=== PATIENT | female | born 1950 | race African-American/Black ===

== ENCOUNTER 2018-10-10 15:04 | Outpatient (CLI) | payer MEDICARE, BC ==
--- NOTE | 2018-10-10 15:43 | MMO ---
Bilateral MAMMO Bilat Screen [facility]. CLINICAL HISTORY: Patient is 67 years old and is seen for screening. The patient has no family history of breast cancer. The patient has no personal history of cancer. VIEWS: The views performed were: bilateral craniocaudal with tomosynthesis and bilateral mediolateral oblique with tomosynthesis. FILMS COMPARED: The present examination has been compared to prior imaging studies performed at [facility] on 05/22/2009, 10/31/2013, 01/07/2016 and 01/10/2017. MAMMOGRAM FINDINGS: There are scattered fibroglandular densities. There are vascular calcifications seen in both breasts. There are no suspicious masses, suspicious calcifications, or new areas of architectural distortion. IMPRESSION: A ROUTINE FOLLOW-UP MAMMOGRAM IN 1 YEAR IS RECOMMENDED. THE RESULTS OF THIS EXAM WERE SENT TO THE PATIENT. ACR BI-RADS Category 2 - Benign finding MAMMOGRAPHY NOTE: 1. A negative mammogram report should not delay a biopsy if a dominant of clinically suspicious mass is present. 2. Approximately 10% to 15% of breast cancers are not detected by mammography. 3. Adenosis and dense breasts may obscure an underlying neoplasm.
== END 2018-10-10 15:05 | disposition home or self-care (01) ==
LOC: BICMAMMO 15:04
PROVIDERS: ATTEND Family Medicine
DX: Z12.31 Encounter for screening mammogram for malignant neoplasm of breast (principal)
CPT/HCPCS: 77063; 77067

== ENCOUNTER 2020-03-03 13:55 | Outpatient (CLI) | payer MEDICARE, BC ==
--- NOTE | 2020-03-03 16:41 | MMO ---
Bilateral MAMMO Bilat Screen [facility]. CLINICAL HISTORY: Patient is 69 years old and is seen for screening. The patient has no family history of breast cancer. The patient has no personal history of cancer. VIEWS: The views performed were: bilateral craniocaudal with tomosynthesis and bilateral mediolateral oblique with tomosynthesis. FILMS COMPARED: The present examination has been compared to prior imaging studies performed at [facility] on 10/31/2013, 01/07/2016, 01/10/2017 and 10/10/2018. This study has been interpreted with the assistance of computer-aided detection. MAMMOGRAM FINDINGS: There are scattered fibroglandular densities. There are no suspicious masses, suspicious calcifications, or new areas of architectural distortion. IMPRESSION: THERE IS NO MAMMOGRAPHIC EVIDENCE OF MALIGNANCY. A ROUTINE FOLLOW-UP MAMMOGRAM IN 1 YEAR IS RECOMMENDED. THE RESULTS OF THIS EXAM WERE SENT TO THE PATIENT. ACR BI-RADS Category 1 - Negative MAMMOGRAPHY NOTE: 1. A negative mammogram report should not delay a biopsy if a dominant of clinically suspicious mass is present. 2. Approximately 10% to 15% of breast cancers are not detected by mammography. 3. Adenosis and dense breasts may obscure an underlying neoplasm. Reported by: MARTIN POWELL MD Electonically Signed: [id number]
== END 2020-03-03 13:56 | disposition home or self-care (01) ==
LOC: BICMAMMO 13:55
PROVIDERS: ATTEND Family Medicine
DX: Z12.31 Encounter for screening mammogram for malignant neoplasm of breast (principal)
CPT/HCPCS: 77063; 77067

== ENCOUNTER 2021-12-16 13:51 | Outpatient (CLI) | payer MEDICARE, BC | END 2021-12-16 13:52 | disposition home or self-care (01) | LOC: BICMAMMO 13:51 | PROVIDERS: ATTEND Family Medicine | DX: Z12.31 Encounter for screening mammogram for malignant neoplasm of breast (principal); Z13.820 Encounter for screening for osteoporosis; E28.39 Other primary ovarian failure; M85.88 Other specified disorders of bone density and structure, other site; Z78.0 Asymptomatic menopausal state | CPT/HCPCS: 77063; 77067; 77080 ==

== ENCOUNTER 2022-01-18 09:38 | Emergency (ER) | payer OTHER, MEDICARE, BC ==
[2022-01-18] MEDS ORDERED: Ketorolac Tromethamine 30 MG/ML VIAL ONE (12:10)
== END 2022-01-18 12:33 | disposition home or self-care (01) ==
LOC: ERS 09:38
DX: M54.12 Radiculopathy, cervical region (principal); I10 Essential (primary) hypertension; E78.00 Pure hypercholesterolemia, unspecified; F17.220 Nicotine dependence, chewing tobacco, uncomplicated; V43.52XA Car driver injured in collision with other type car in traffic accident, initial encounter
CPT/HCPCS: 70450; 72125; 96372; J1885

== ENCOUNTER 2022-12-21 14:09 | Outpatient (CLI) | payer MEDICARE, BC | END 2022-12-21 14:10 | disposition home or self-care (01) | LOC: BICMAMMO 14:09 | PROVIDERS: ATTEND Family Medicine | DX: Z12.31 Encounter for screening mammogram for malignant neoplasm of breast (principal) | CPT/HCPCS: 77063; 77067 ==

== ENCOUNTER 2024-02-12 19:11 | Emergency (ER) | payer MEDICARE ==
[2024-02-12 20:11] LABS: Analyzer IN Cardio ER; Base Excess 1.9 mEq/L (-2.0 to +3.0); Calcium, Ionized (venous) 1.17 mmol/L (1.16-1.32); Chloride (VBG) 94 mmol/L (98-106); Hematocrit-VBG 45 % (36.0-47.0); Hemoglobin (Hb) 15.3 g/dL (11.7-16.1); Potassium (VBG) 4.13 mmol/L (3.70-5.30); Sodium 135 mmol/L (133-146); pH (venous) 7.438 (7.32-7.43)
[2024-02-12 20:12] LABS: #Basophils 0.08 10x3/uL (0.0-0.2); %Basophils 1.1 % (0.0-1.0); %Eosinophils 1.6 % (0.0-10.0); %Lymphocytes 33.9 % (21.0-51.0); %Monocytes 10.6 % (0.0-10.0); %Neutrophils 52.7 % (42.0-75.0); Hematocrit 42.4 % (36.0-47.0); Mean Corpuscular Hemoglobin 28.3 pg (27.0-31.0); Mean Corpuscular Volume 85.7 fL (78.0-98.0); Mean Platelet Volume 11.3 fL (7.4-10.4); Platelet Count 261 10x3/uL (130-400); RBC Distribution Width 12.3 % (11.5-14.5); Red Blood Cell (RBC) Count 4.95 mill/uL (4.20-5.40)
[2024-02-12 20:19] LABS: Bacteria/HPF None Seen HPF (None Seen); Bilirubin Negative (Negative); Blood, Urine Negative (Negative); CAUTI Indications for Culture Pelvic or flank pain; Clarity Clear (Clear); Glucose, Urine (Dipstick) Greater than 1000 mg/dL (Negative); Ketone, Urine Negative (Negative); Leukocyte Negative Leu/uL (Negative); Nitrite Negative (Negative); Protein, Urine (Dipstick) Negative (Neg-Trace); RBC/HPF 0-3 HPF (0-3); Specific Gravity, Urine 1.033 (1.002-1.036); Squamous Epithelial 0-3 HPF (0-3); Urobilinogen Normal mg/dL (Less than 2); WBC/HPF 0-3 HPF (0-3)
[2024-02-12 20:20] LABS: Urine Culture Reflex No No
[2024-02-12 20:43] LABS: ALT (SGPT) 11 U/L (8-55); AST (SGOT) 16 U/L (5-34); Albumin 4.1 g/dL (3.4-4.8); Alkaline Phosphatase 65 U/L (40-110); Anion Gap 14 mmol/L (10-20); BUN (Urea Nitrogen) 9 mg/dL (9.8-20.1); Bilirubin, Total 0.4 mg/dL (0.2-1.2); Calc. Creatinine Clearance 0 mL/min (70-130); Calcium 9.7 mg/dL (7.8-10.44); Carbon Dioxide 25 mmol/L (23-31); Chloride 97 mmol/L (98-107); Estimated GFR 50; Globulin 3.7 g/dL (2.4-3.5); Glucose 500 mg/dL (83-110); Potassium 4.1 mmol/L (3.5-5.1); Protein, Total 7.8 g/dL (5.8-8.1); Sodium 132 mmol/L (136-145)
[2024-02-12] MEDS ORDERED: metFORMIN 500 MG TAB PO SCH (21:30)
== END 2024-02-12 22:51 | disposition home or self-care (01) ==
LOC: ERS 19:11
DX: E11.65 Type 2 diabetes mellitus with hyperglycemia (principal); I10 Essential (primary) hypertension; R54 Age-related physical debility; F17.220 Nicotine dependence, chewing tobacco, uncomplicated
CPT/HCPCS: 36415; 36416; 80053; 80061; 81001; 82010; 82043; 82805; 83036; 84443; 85025; 86803; 96360

== ENCOUNTER 2024-03-26 11:40 | Outpatient (CLI) | payer MEDICARE | END 2024-03-26 11:41 | disposition home or self-care (01) | LOC: BICMAMMO 11:40 | PROVIDERS: ATTEND Family Medicine | DX: Z12.31 Encounter for screening mammogram for malignant neoplasm of breast (principal) | CPT/HCPCS: 77063; 77067 ==